=== PATIENT | female | born 1935 | race Caucasian/White ===

== ENCOUNTER 2019-02-22 17:37 | Emergency (ER) | payer MEDICARE ==
[2019-02-22 17:50] VITALS: BP 143/77
--- OUTSIDE RECORDS SUMMARY | 2019-02-22 18:08 | XMS REPORT | Continuity of Care Document ---
:1935 External Reference #:[id number] Author Name Sita Sanchez NP Address [address] [facility] [place] [address] Care Team Providers Name Role Phone David Shoemaker MD Care Team Information Television Announcer Unavailable David Shoemaker MD Primary Care Physician Unavailable Payers Date Identification Numbers Payment Provider Subscriber Effective: 2014 Policy Number: [id number] Medicare Blue Ppo Leslie Smith PayID: [id number] [address] [address] [place] [address] Effective: 2001 Policy Number: [id number] Medicare [place] Leslie Smith Expires: 2017 PayID: [id number] [address] [place] [address] Problems Active Problems Provider Date Abnormal gait David Shoemaker M.D. Onset: 03/29/2018 Foreign body in ear David Shoemaker M.D. Onset: 01/26/2014 Acute upper respiratory infection David Shoemaker M.D. Onset: 06/21/2012 Dyspnea David Shoemaker M.D. Onset: 04/08/2012 Dizziness and giddiness David Shoemaker M.D. Onset: 04/08/2012 Chest pain David Shoemaker M.D. Onset: 04/08/2012 Acute bronchitis David Shoemaker M.D. Onset: 06/23/2011 Family History Date Family Member(s) Observation Comments Mother due to Coronary Atherosclerosis () Social History Type Date Description Comments Sex Unknown Lives With Spouse Tobacco Use Start: Unknown Nonsmoker Tobacco Use Start: Unknown Nonsmoker Smoking Status Reviewed: 02/06/19 Nonsmoker Allergies, Adverse Reactions, Alerts Active Allergies Reaction Severity Comments Date Sulfa Drugs 11/26/1997 Macrodantin 12/13/2004 Medications Active Medications SIG Qnty Indications Ordering Date Provider Guaifenesin ER 1 by mouth twice 30tabs J01.90 Sita Acuna 07/26/2018 1200mg a day Sanchez, KETTLEMAN Tablets ER 12HR Triamcinolone apply thin film 15 David Sanders 03/27/2018 Acetonide twice a day on Belkys Shoemaker 0.5% Cream rash Claritin use 1 by mouth 20caps David Sanders 07/10/2015 10mg Capsules q.d Belkys Shoemaker Antivert 1 po tid prn 50tabs Davdi Sanders 04/23/2012 12.5mg Tablets for vertigo Belkys Shoemaker Preservision Areds 2 2 po qd 120caps Unknown Areds 2 Capsules Nasacort Allergy 24HR spray 2 sprays Unknown in each nostril 55mcg/Act Aerosol at bedtime History Medications Augmentin 1 by mouth twice 16tabs David Sanders 07/31/2018 - 500-125mg a day with meals Belkys Shoemaker 02/06/2019 Tablets Triamcinolone use twice a day 15gm David Sanders 03/27/2018 - Acetonide for 5-7 days Belkys Shoemaker 03/27/2018 0.1% Cream Amoxicillin 1 by mouth twice 14tabs David aSnders 12/27/2016 - 875mg a day x 7 days Belkys Shoemaker 05/07/2017 Tablets Flonase 2 each nostril 1units David Sanders 08/17/2014 - 50mcg/Act every day Belkys Shoemaker 05/07/2017 Suspension Lotrisone use on skin twice 30units David Sanders 08/17/2014 - 1-0.05% a day Belkys Shoemaker 07/10/2015 Cream Valacyclovir HCL 1 tab q 8 hrs x 7 21tabs 053.9 Debbie Ontiveros NP 2013 - 1gm days 01/16/2014 Tablets Tobrex 2 gtts affected 5cc David Sanders 07/09/2013 - 0.3% Solution eye(s) tid x 4-5 Belkys Shoemaker 11/23/2013 days Keflex 1 po bid 20caps David Sanders 01/25/2013 - 500mg Capsules Belkys Shoemaker 02/03/2013 Cipro 1 po bid 16tarula Sanders 01/10/2013 - 500mg Tablets Belkys Shoemaker 11/23/2013 Zostavax pt may receive 1Dose David Sanders 10/10/2012 - the zostavax Belkys Shoemaker 11/23/2013 16618Bjn/0.65ML injection Solution Rec Zithromax Z-Jaydon as directed 1Pbarbara Sanders 06/21/2012 - 250mg Belkys Shoemaker 11/23/2013 Tablets Xyzal 1 po qd 30tabs David Sanders 04/08/2012 - 5mg Tablets Belkys Shoemaker 06/21/2012 Zithromax 2 po qd today , 1tarula Sanders 10/09/2011 - 250mg then 1 po qd Belkys Shoemaker 04/08/2012 Tablets times 4 Ceftin 1 po bid 20tabs David Sanders 06/23/2011 - 500mg Tablets Belkys Shoemaker 04/08/2012 Ciprofloxacin HCL 1 po bid x 5days 10tarula Sanders 01/09/2011 - 250 Belkys Shoemaker 06/23/2011 Tablets Ceftin 1 po bid 16tarula Sanders 09/23/2010 - 500mg Tablets Belkys Shoemaker 01/09/2011 Ceftin 1 po bid x 8 days 16tarula Sanders 06/13/2010 - 250mg Tablets Belkys Shoemaker 09/23/2010 Loratadine 1 po qd 90tabs David Sanders 05/09/2010 - 10mg Belkys Shoemaker 11/23/2013 Tablets Zithromax Z-Jaydon as directed Mindy Sanders 02/25/2010 - 250mg Belkys Shoemaker 04/01/2010 Tablets Nasonex 2 sample [facility] 07/09/2009 - 50mcg/Act sprays/nostril[facility] 05/09/2010 Suspension y Brusly Belia 1 po qd 30tabs David Sanders 07/09/2009 - 180mg Tablets Belkys Shoemaker 05/09/2010 Penvk use bid x 10 20unomar Sanders 07/09/2009 - 500 days Belkys Shoemaker 04/01/2010 Antivert 1 po tid prn for 30tabs David Sanders 04/21/2009 - 12.5mg vertigo Belkys Shoemaker 05/09/2010 Tablets Prednisone 2 Pills A Day For 50tabs David Sanders 11/27/2008 - 20mg 2 WKS Belkys Shoemaker 01/18/2009 Tablets Tessalon take tid for 30caps David Sanders 11/14/2008 - 200mg cough Belkys Shoemaker 07/09/2009 Capsules Omeprazole 1 po qd 30units David Sanders 11/05/2008 - 20mg Pills Belkys Shoemaker 07/09/2009 Advair Diskus 1 puff bid 1unomar Sanders 08/15/2008 - 250/50 Belkys Shoemaker 07/09/2009 Misc Nicoderm CQ 1 qd for 4 weeks 30un David Sanders 08/03/2008 - 14mg/24HR Belkys Shoemaker 01/18/2009 Patches 24HR Nicoderm CQ use daily x 1 mo. 30un David Sanders 08/03/2008 - 7mg/24HR after finishing Belkys Shoemaker 01/18/2009 Patches 24HR 14mg patches Singulair use daily 30units David Sanders 07/10/2008 - 10 Pill Belkys Shoemaker 07/09/2009 Levaquin 1 po qd 10tabs David Sanders 07/10/2008 - 500mg Belkys Shoemaker 01/18/2009 Tablets Robitussin A-C 1-2 tsp po q4h 4Oz David Sanders 07/09/2008 - prn cough Belkys Shoemaker 04/01/2010 Ceftin 1 PO bid 20tabs David Sanders 06/22/2008 - 250mg Tablets Belkys Shoemaker 01/18/2009 Alendronate Sodium take 1 tablet by 12tabs David Sanders 06/13/2008 - mouth every week Belkys Shoemaker 07/09/2009 70mg Tabs Loratadine 1 PO qd [facility] 06/01/2008 - 10mg [facility] 07/09/2009 Tablets Brusly Medrol Dosepak use as directed 1tabs David Sanders 06/01/2008 - 4mg Belkys Shoemaker 06/22/2008 Tablets Doxycycline Hyclate use 1bid 14caps David Sanders 06/01/2008 - Belkys Shoemaker 06/22/2008 100mg Capsules Keflex 1 po bid 14caps David Sanders 11/26/2006 - 500mg Capsules Belkys Shoemaker 03/18/2007 Doxycycline 1 po bid 20capjeff Sanders 08/02/2006 - 100mg Belkys Shoemaker 03/18/2007 Capsules Meclizine 1-2 Tab PO tid 50tabs David Sanders 04/06/2006 - 12.5mg prn Dizziness Belkys Shoemaker 08/02/2006 Tablets Ciprofloxacin 1 bid x 10 days 20tabs 466.0 MADHAVI Stone 01/25/2006 - 500mg 08/02/2006 Tablets Cipro 1 po bid for 7 10tabs David Sanders 03/20/2005 - 500mg Tablets days Belkys Shoemaker 04/03/2005 Ketek David Sanders 03/10/2005 - 5Day Dose Jaydon Belkys Shoemaker 01/25/2006 Tablets Cipro 1 po bid x 10d 20tabs MADHAVI Stone 12/13/2004 - 250mg Tablets 03/10/2005 Robitussin ac 1-2 tsp po q4h 4Oz David Sanders 07/30/2004 - prn cough Belkys Shoemaker 03/10/2005 Physical Therapy treatment and David Sanders 11/30/2003 - evaluation for Belkys Shoemaker 03/10/2005 sciatic pain Augmentin 1 PO bid 20units James Hsu, 07/30/2003 - 875mg Belkys 08/09/2003 Extendryl SR Caps 1 bid 20caps James Hsu, 07/30/2003 - M.DBoaz 08/09/2003 Capsules Ciprofloxacin bid X 10D 20units MADHAVI Stone 07/10/2002 - 250mg 11/14/2002 Cipro bid X 5 Days 10tabs David Sanders 02/28/2002 - 250mg Tabs Belkys Shoemaker 03/05/2002 Cipro 1 PO bid 10tabs David Sanders 11/22/2001 - 250mg Tabjeff Shoemaker M.D. 11/27/2001 Fosamax 1 po qwk 12units David Sanders 01/31/2001 - 70mg Belkys Shoemaker 07/09/2009 please fill genericly Ceftin po bid 20units David Sanders 04/06/2000 - 250mg Belkys Shoemaker 01/31/2001 Claritin 1 qd 100units David Sanders 11/26/1997 - 10mg Belkys Shoemaker 07/30/2003 Estrace insert 1 3months Unknown - 0.1mg/GM applicator full 04/08/2012 Cream pv three times a wk for 1 month then biweekly Nasonex 2 sprays every 1units David Sanders - 50mcg/Act night at bedtime Belkys Shoemaker 08/17/2014 Suspension each nostril Belia Allergy 1 po qd prn Unknown - 60mg 07/10/2015 Tablets Immunizations CPT Code Status Date Vaccine Lot # [id number] Given 04/18/2018 High-Dose, Influenza Virus Vacccine-fluzone 65 and older 92620 Given 07/10/2015 Pneumococcal Conjugate Vacc-13 [id number] Given 05/10/2015 High-Dose, Influenza Virus Vacccine-fluzone 65 and older 37270 Given 04/24/2014 DO Not Use Split Influenza Virus Vaccine 99731 Given 04/26/2013 DO Not Use Split Influenza Virus Vaccine 85449 Given 09/09/2012 Zostivax 53086 Given 04/08/2012 Tdap Tetanus, W Pertussis [id number] 71471 Given 04/08/2012 DO Not Use Split Influenza Virus Vaccine [id number] 60564 Given 04/01/2010 DO Not Use Split Influenza Virus Vaccine [id number] 27833 Given 04/30/2008 DO Not Use Split Influenza Virus Vaccine [id number] 97022 Given 07/11/2007 DO Not Use Split Influenza Virus Vaccine [id number] 24928 Given 06/11/2006 DO Not Use Split Influenza Virus Vaccine 91375 Given 05/21/2005 DO Not Use Split Influenza Virus Vaccine 17961 Given 05/30/2004 DO Not Use Split Influenza Virus Vaccine Vital Signs Date Vital Result Comment 02/06/2019 3:27pm BP Systolic 136 mmHg BP Diastolic 78 mmHg Heart Rate 70 /min Body Temperature 98.1 F Respiratory Rate 16 /min Height 62 inches 5'2" Weight 138.00 lb BMI (Body Mass Index) 25.2 kg/m2 07/26/2018 2:16pm BP Systolic 124 mmHg BP Diastolic 70 mmHg Heart Rate 72 /min Body Temperature 99.0 F Respiratory Rate 18 /min Height 62 inches 5'2" 03/29/2018 11:36am BP Systolic 136 mmHg BP Diastolic 84 mmHg Heart Rate 76 /min Body Temperature 97.5 F Height 62 inches 5'2" Weight 146.00 lb BMI (Body Mass Index) 26.7 kg/m2 07/20/2017 2:42pm BP Systolic 144 mmHg BP Diastolic 86 mmHg Heart Rate 60 /min Body Temperature 97.2 F Respiratory Rate 16 /min Height 61.5 inches 5'1.50" Weight 153.12 lb BMI (Body Mass Index) 28.5 kg/m2 05/07/2017 3:58pm BP Systolic 128 mmHg BP Diastolic 78 mmHg Heart Rate 76 /min Body Temperature 97.9 F Respiratory Rate 16 /min O2 % BldC Oximetry 97 % Ra Height 61.5 inches 5'1.50" Weight 150.00 lb BMI (Body Mass Index) 27.9 kg/m2 07/10/2015 10:46am BP Systolic 124 mmHg BP Diastolic 70 mmHg Heart Rate 74 /min Body Temperature 97.4 F Respiratory Rate 18 /min Height 62 inches 5'2" Weight 150.00 lb BMI (Body Mass Index) 27.4 kg/m2 01/26/2014 10:31am BP Systolic 126 mmHg BP Diastolic 70 mmHg Heart Rate 62 /min Body Temperature 97.0 F Respiratory Rate 18 /min Height 62 inches 5'2" Weight 150.00 lb BMI (Body Mass Index) 27.4 kg/m2 01/16/2014 9:41am BP Systolic 122 mmHg BP Diastolic 80 mmHg Heart Rate 64 /min Body Temperature 97.9 F Respiratory Rate 18 /min Height 62 inches 5'2" Weight 150.00 lb BMI (Body Mass Index) 27.4 kg/m2 11/30/2013 9:38am BP Systolic 130 mmHg BP Diastolic 70 mmHg Heart Rate 70 /min Body Temperature 97.0 F Respiratory Rate 18 /min Height 61.5 inches 5'1.50" Weight 148.00 lb BMI (Body Mass Index) 27.5 kg/m2 11/23/2013 3:18pm BP Systolic 122 mmHg BP Diastolic 80 mmHg Heart Rate 76 /min Body Temperature 97.7 F Respiratory Rate 16 /min Height 61.5 inches 5'1.50" Weight 151.38 lb BMI (Body Mass Index) 28.1 kg/m2 03/03/2013 2:26pm BP Systolic 120 mmHg BP Diastolic 78 mmHg Heart Rate 80 /min Body Temperature 97.9 F Respiratory Rate 16 /min Height 61.5 inches 5'1.50" Weight 148.38 lb BMI (Body Mass Index) 27.6 kg/m2 06/21/2012 1:16pm BP Systolic 120 mmHg BP Diastolic 66 mmHg Heart Rate 88 /min Body Temperature 99.2 F Height 61.5 inches 5'1.50" Weight 155.00 lb BMI (Body Mass Index) 28.8 kg/m2 04/08/2012 3:33pm BP Systolic 100 mmHg BP Diastolic 60 mmHg Heart Rate 64 /min Body Temperature 98.4 F Respiratory Rate 20 /min Height 61.5 inches 5'1.50" Weight 155.00 lb BMI (Body Mass Index) 28.8 kg/m2 06/23/2011 1:24pm BP Systolic 112 mmHg BP Diastolic 64 mmHg Heart Rate 76 /min Body Temperature 98.8 F Height 62.5 inches 5'2.50" Weight 154.00 lb BMI (Body Mass Index) 27.7 kg/m2 01/09/2011 11:44am BP Systolic 110 mmHg BP Diastolic 70 mmHg Heart Rate 68 /min Respiratory Rate 14 /min Height 62.5 inches 5'2.50" Weight 154.00 lb BMI (Body Mass Index) 27.7 kg/m2 09/23/2010 4:34pm BP Systolic 126 mmHg BP Diastolic 72 mmHg Heart Rate 72 /min Body Temperature 98.8 F Height 62.5 inches 5'2.50" Weight 153.00 lb BMI (Body Mass Index) 27.5 kg/m2 05/09/2010 10:42am BP Systolic 104 mmHg BP Diastolic 64 mmHg Heart Rate 84 /min Height 62.5 inches 5'2.50" Weight 153.00 lb BMI (Body Mass Index) 27.5 kg/m2 02/25/2010 2:07pm BP Systolic 122 mmHg BP Diastolic 72 mmHg Heart Rate 72 /min Body Temperature 98.9 F Height 63 inches 5'3" Weight 156.00 lb BMI (Body Mass Index) 27.6 kg/m2 07/09/2009 11:43am BP Systolic 110 mmHg BP Diastolic 70 mmHg Heart Rate 72 /min Body Temperature 97.8 F Height 63 inches 5'3" Weight 154.00 lb BMI (Body Mass Index) 27.3 kg/m2 01/18/2009 9:12am BP Systolic 120 mmHg BP Diastolic 80 mmHg Heart Rate 80 /min Body Temperature 99.2 F Respiratory Rate 16 /min Weight 152.00 lb 07/10/2008 2:11pm BP Systolic 134 mmHg BP Diastolic 84 mmHg Heart Rate 84 /min Height 63 inches 5'3" Weight 158.00 lb BMI (Body Mass Index) 28.0 kg/m2 06/01/2008 1:14pm BP Systolic 132 mmHg BP Diastolic 88 mmHg Heart Rate 68 /min Body Temperature 98.5 F Respiratory Rate 20 /min Height 63 inches 5'3" Weight 159.00 lb BMI (Body Mass Index) 28.2 kg/m2 03/18/2007 11:07am BP Systolic 126 mmHg BP Diastolic 66 mmHg Heart Rate 72 /min Body Temperature 98.5 F Height 63 inches 5'3" Weight 155.00 lb BMI (Body Mass Index) 27.5 kg/m2 11/26/2006 1:09pm BP Systolic 124 mmHg BP Diastolic 68 mmHg Heart Rate 78 /min Body Temperature 98.2 F Height 63 inches 5'3" Weight 158.00 lb BMI (Body Mass Index) 28.0 kg/m2 08/02/2006 3:12pm BP Systolic 132 mmHg BP Diastolic 82 mmHg Heart Rate 80 /min Body Temperature 98.3 F Height 63 inches 5'3" Weight 158.00 lb BMI (Body Mass Index) 28.0 kg/m2 01/25/2006 8:42pm BP Systolic 126 mmHg BP Diastolic 82 mmHg Heart Rate 74 /min Body Temperature 98.6 F Respiratory Rate 15 /min Height 63 inches 5'3" 03/10/2005 1:59pm BP Systolic 122 mmHg BP Diastolic 70 mmHg BP Diastolic Recheck 0 mmHg Body Temperature 97.2 F Height 63 inches 5'3" Weight 152.00 lb BMI (Body Mass Index) 26.9 kg/m2 12/13/2004 10:18am BP Systolic 106 mmHg BP Diastolic 70 mmHg Heart Rate 76 /min Body Temperature 98.1 F Height 63 inches 5'3" Weight 152.00 lb BMI (Body Mass Index) 26.9 kg/m2 12/24/2003 9:06am BP Systolic 120 mmHg BP Diastolic 84 mmHg Heart Rate 80 /min Height 63 inches 5'3" Weight 152.00 lb BMI (Body Mass Index) 26.9 kg/m2 11/27/2003 4:19pm BP Systolic 90 mmHg BP Diastolic 60 mmHg Heart Rate 72 /min Height 63 inches 5'3" Weight 151.00 lb BMI (Body Mass Index) 26.7 kg/m2 07/30/2003 1:54pm BP Systolic 112 mmHg BP Diastolic 68 mmHg Heart Rate 72 /min Body Temperature 97.1 F R Ear Height 63 inches 5'3" Weight 154.00 lb BMI (Body Mass Index) 27.3 kg/m2 11/14/2002 10:32am BP Systolic 92 mmHg BP Diastolic 62 mmHg Heart Rate 76 /min Body Temperature 98.3 F Height 63 inches 5'3" Weight 152.00 lb BMI (Body Mass Index) 26.9 kg/m2 07/10/2002 6:06pm BP Systolic 100 mmHg BP Diastolic 60 mmHg Heart Rate 86 /min Height 63 inches 5'3" Weight 154.00 lb BMI (Body Mass Index) 27.3 kg/m2 01/31/2001 9:24am BP Systolic 110 mmHg BP Diastolic 70 mmHg Heart Rate 84 /min Height 63 inches 5'3" Weight 155.00 lb BMI (Body Mass Index) 27.5 kg/m2 04/06/2000 2:26pm BP Systolic 102 mmHg BP Diastolic 70 mmHg Body Temperature 98.0 F Weight 151.00 lb 05/15/1998 4:25pm BP Systolic 118 mmHg BP Diastolic 80 mmHg Body Temperature 97.8 F Weight 161.00 lb 04/09/1998 11:37am BP Systolic 110 mmHg BP Diastolic 76 mmHg Body Temperature 97.0 F Weight 158.00 lb 11/26/1997 10:30am BP Systolic 106 mmHg BP Diastolic 60 mmHg Height 63.5 inches 5'3.50" Weight 155.00 lb Results Test Date Facility Test Result H/L Range Note Ua - Micro ([facility]) 02/06/2019 [facility] Appearance CLEAR (607)- - Color YELLOW Glucose, Urine ([facility]/CTX) NEG Bilirubin NEG Ketones NEG SP Grav 1.015 Blood TRACE-INTACT # PH 7.5 Protein 1+ # Urobil 0.2 Nitrite NEG Leukocytes ([facility]) NEG Hyaline - /Lpf Granular - /Lpf WBC ([facility]) - RBC 0-2 # Mucus ([facility]/CBC/[facility]) - /Lpf Epith RARE /Lpf # Bacteria RARE /Hpf # Amorphous ([facility]) - /Lpf Crystals, Fluid ([facility]/CTX) - Basic Metabolic Panel 05/09/2018 [facility] [place] 135 mmol/L N 135-145 Potassium 4.3 mmol/L N 3.5-5.0 Chloride 101 mmol/L N 101-111 Co2 Carbon Dioxide 32 mmol/L N 22-32 Anion Gap 2 mmol/L N 2-11 Glucose 116 mg/dL High 70-100 Blood Urea Nitrogen 32 mg/dL High 6-24 Creatinine 1.09 mg/dL High 0.51-0.95 BUN/Creatinine Ratio 29.4 High 8-20 Calcium 9.1 mg/dL N 8.6-10.3 Egfr Non- 48.2 >60 Egfr 58.3 >60 1 Laboratory test 05/09/2018 [facility] [place] Dimer Quantitative < 200 ng/mL N Less Than 230 2 finding B-Type Natriuretic Peptide BNP 171 pg/mL High 3 Basic Metabolic Panel 04/29/2018 [facility] [place] 137 mmol/L N 135-145 Potassium 5.0 mmol/L N 3.5-5.0 Chloride 105 mmol/L N 101-111 Co2 Carbon Dioxide 28 mmol/L N 22-32 Anion Gap 4 mmol/L N 2-11 Calcium 9.4 mg/dL N 8.6-10.3 Glucose 124 mg/dL High 70-100 Blood Urea Nitrogen 30 mg/dL High 6-24 Creatinine 1.05 mg/dL High 0.51-0.95 BUN/Creatinine Ratio 28.6 High 8-20 Egfr Non- 50.3 >60 Egfr 60.9 >60 4 CBC Auto Diff 04/18/2018 [facility] [place] Blood Count 7.0 10^3/uL N 3.5-10.8 Red Blood Count 4.03 10^6/uL N 4.00-5.40 Hemoglobin 12.4 g/dL N 12.0-16.0 Hematocrit 36 % N 35-47 Mean Corpuscular Volume 89 fL N 80-97 Mean Corpuscular Hemoglobin 31 pg N 27-31 Mean Corpuscular HGB Conc 35 g/dL N 31-36 Red Cell Distribution Width 13 % N 10.5-15 Platelet Count 171 10^3/uL N 150-450 Mean Platelet Volume 9.9 um3 N 7.4-10.4 Abs Neutrophils 5.8 10^3/uL N 1.5-7.7 Abs Lymphocytes 0.8 10^3/uL Low 1.0-4.8 Abs Monocytes 0.3 10^3/uL N 0-0.8 Abs Eosinophils 0.2 10^3/uL N 0-0.6 Abs Basophils 0 10^3/uL N 0-0.2 Abs Nucleated RBC 0 10^3/uL Granulocyte % 82.2 % N 38-83 Lymphocyte % 10.8 % Low 25-47 Monocyte % 3.9 % N 0-7 Eosinophil % 2.7 % N 0-6 Basophil % 0.4 % N 0-2 Nucleated Red Blood Cells % 0.2 Basic Metabolic Panel 04/18/2018 [facility] [place] 134 mmol/L Low 135-145 Chloride 99 mmol/L Low 101-111 Co2 Carbon Dioxide 31 mmol/L N 22-32 Glucose 148 mg/dL High 70-100 Blood Urea Nitrogen 40 mg/dL High 6-24 Creatinine 1.47 mg/dL High 0.51-0.95 BUN/Creatinine Ratio 27.2 High 8-20 Calcium 9.5 mg/dL N 8.6-10.3 Egfr Non- 34.1 >60 Egfr 41.3 >60 5 Potassium 5.4 mmol/L High 3.5-5.0 Anion Gap 4 mmol/L N 2-11 Maxbass/Lambda Free Light 04/18/2018 [facility] [place]ass Free Light 2.44 mg/dL Abnormal 6 Chains Ser Chain Lambda Free Light Chain 3.04 mg/dL Abnormal 7 Maxbass/Lambda Free Light Chain 0.8026 8 Protein Electrophoresis 04/18/2018 [facility] [place] Total Protein(Pep) 6.6 g/dL 6.3 - 7.9 Albumin 3.3 g/dL Abnormal 3.4-4.7 Alpha-1 Globulin 0.2 g/dL 0.1-0.3 Alpha-2 Globulin 1.0 g/dL 0.6-1.0 Beta Globulin 0.8 g/dL 0.7-1.2 Gamma Globulin 1.3 g/dL 0.6-1.6 Albumin/Globulin Ratio 0.97 M Henok 0.9 g/dL Impression See Comment 9 Lipid Profile 05/14/2017 John Mas(a) Cholesterol 200 mg/dL 120- 200 Triglycerides 80 mg/dL 30-200 HDL Cholesterol 61 mg/dL 30-85 LDL (Calculated) 123 CALC 0-129 VLDL Cholesterol 16 mg/dL 0-50 HDL Risk Factor 3.3 CALC 0.0-4.4 Laboratory test finding 05/14/2017 Lopez Flora(a) TSH 2.14 mIU/L 0.50-6.00 Vitamin B-12 871 pg/mL 230-1050 Spep Serum Protein 05/14/2017 [facility] Protein, 6.6 g/dL 6.0-8.5 Electrophoresis [address] [facility] Total, [place] [address] (602)- - Albumin 3.4 g/dL 2.9-4.4 Ocplf-4-Nrrcjcfg 0.2 g/dL 0.0-0.4 Tqccq-6-Xdwomvif 0.8 g/dL 0.4-1.0 Beta Globulin 0.8 g/dL 0.7-1.3 Gamma Globulin 1.4 g/dL 0.4-1.8 M-Henok 1.1 g/dL High Not Observed 10 Globulin, Total 3.2 g/dL 2.2-3.9 A/G Ratio 1.1 0.7-1.7 Please note: See Comment: 11 Laboratory test 05/14/2017 [facility] PDF [id number] SEE IMAGE finding [address] [place] [address] (101)- - CBC Auto Diff 04/10/2016 [facility] [place] Blood Count 6.7 10^3/uL N 3.5-10 .8 Red Blood Count 4.16 10^6/uL N 4.0-5.4 Hemoglobin 12.8 g/dL N 12.0-16.0 Hematocrit 37 % N 35-47 Mean Corpuscular Volume 89 fL N 80-97 Mean Corpuscular Hemoglobin 31 pg N 27-31 Mean Corpuscular HGB Conc 34 g/dL N 31-36 Red Cell Distribution Width 13 % N 10.5-15 Platelet Count 169 10^3/uL N 150-450 Mean Platelet Volume 10 um3 N 7.4-10.4 Abs Neutrophils 5.2 10^3/uL N 1.5-7.7 Abs Lymphocytes 0.9 10^3/uL Low 1.0-4.8 Abs Monocytes 0.4 10^3/uL N 0-0.8 Abs Eosinophils 0.2 10^3/uL N 0-0.6 Abs Basophils 0.1 10^3/uL N 0-0.2 Abs Nucleated RBC 0 10^3/uL N Granulocyte % 77.3 % N 38-83 Lymphocyte % 12.8 % Low 25-47 Monocyte % 5.3 % N 1-9 Eosinophil % 3.4 % N 0-6 Basophil % 1.2 % N 0-2 Nucleated Red Blood Cells % 0.1 N Comp Metabolic Panel 04/10/2016 [facility] Sodium 136 mmol/L N 133-145 Potassium 4.9 mmol/L N 3.5-5.0 Chloride 102 mmol/L N 101-111 Co2 Carbon Dioxide 29 mmol/L N 22-32 Anion Gap 5 mmol/L N 2-11 Glucose 86 mg/dL N 70-100 Blood Urea Nitrogen 31 mg/dL High 6-24 Creatinine 1.10 mg/dL High 0.51-0.95 BUN/Creatinine Ratio 28.2 High 8-20 Calcium 9.4 mg/dL N 8.6-10.3 Total Protein 6.6 g/dL N 6.4-8.9 Albumin 3.9 g/dL N 3.2-5.2 Globulin 2.7 g/dL N 2-4 Albumin/Globulin Ratio 1.4 N 1-3 Total Bilirubin 0.50 mg/dL N 0.2-1.0 Alkaline Phosphatase 42 U/L N 34-104 Alt 14 U/L N 7-52 Ast 21 U/L N 13-39 Egfr Non- 47.9 N >60 Egfr 61.6 N >60 12 Protein Electrophoresis 04/10/2016 [facility] Total Protein(Pep) 6.8 g/dL N 6.3 - 7.9 Albumin 3.3 g/dL Abnormal 3.4-4.7 Alpha-1 Globulin 0.3 g/dL N 0.1-0.3 Alpha-2 Globulin 1.1 g/dL Abnormal 0.6-1.0 Beta Globulin 0.8 g/dL N 0.7-1.2 Gamma Globulin 1.4 g/dL N 0.6-1.6 Albumin/Globulin Ratio 0.93 N M Henok 1.0 g/dL N Impression See Comment N 13 Lipid Profile 07/17/2015 John Mas(a) Cholesterol 231 mg/dL High 120-200 Triglycerides 76 mg/dL 30-200 HDL Cholesterol 66 mg/dL 30-85 LDL (Calculated) 150 CALC High 0-129 VLDL Cholesterol 15 mg/dL 0-50 HDL Risk Factor 3.5 CALC 0.0-4.4 Comprehensive Metabolic 07/17/2015 John Mas(a) Sodium 138 mEq/L 134-149 Prof Potassium 4.4 mEq/L 3.6-5.5 Chloride 99 mEq/L 94-112 Carbon Dioxide 26 mEq/L 21-32 Glucose 105 mg/dL 70-105 BUN 24 mg/dL 6-26 Creatinine 1.0 mg/dL 0.6-1.4 BUN/Creat Ratio 24.0 CALC 8.0-36.0 Calcium 9.2 mg/dL 8.6-10.2 Total Protein 7.4 g/dL 6.4-8.3 Albumin 4.3 g/dL 3.8-5.5 Globulin 3.1 g/dL 2.0-4.8 A/G Ratio 1.4 CALC 0.6-2.3 Alk. Phosphatase 47 U/L 30-110 Alt (SGPT) 16 U/L 7-35 Ast (Sgot) 26 U/L 5-34 Total Bilirubin 0.5 mg/dL 0.2-1.3 GFR Non- 57 ml/min/1.73m^ Low >=60 GFR >60 ml/min/1.73m^ >=60 Complete Blood Count 07/17/2015 John Mas(a) WBC 5.1 x10^3/UL 3.6 -9.6 RBC 4.09 x10^6/UL 3.90-5.70 HGB 12.5 g/dL 12.1-17.2 HCT 37 % 36-50 MCV 91.0 fL 82.2-97.4 MCH 30.6 pg 27.6-33.3 MCHC 33.5 g/dL 33.0-35.5 RDW 13.2 % 11.6-13.7 PLT 163 x10^3/UL 150-400 MPV 8.9 fL 7.4-10.4 Gran # 3.7 x10^3/UL 1.5-7.2 Lymph# 1.1 x10^3/UL 0.7-4.9 [facility]# 0.3 x10^3/UL 0.1-0.9 Gran % 70.9 % 42.2-75.2 Lymph % 22.9 % 20.5-51.1 [facility]% 6.2 % 1.7-9.3 Basic Metabolic Panel 02/04/2015 [facility] Sodium 134 mmol/L N 133-145 Potassium 5.1 mmol/L High 3.5-5.0 Chloride 100 mmol/L Low 101-111 Co2 Carbon Dioxide 31 mmol/L N 22-32 Anion Gap 3 mmol/L N 2-11 Glucose 99 mg/dL N 70-100 Blood Urea Nitrogen 26 mg/dL High 6-24 Creatinine 1.04 mg/dL High 0.51-0.95 BUN/Creatinine Ratio 25.0 High 8-20 Calcium 9.5 mg/dL N 8.6-10.3 Egfr Non- 51.3 N >60 Egfr 65.9 N >60 14 Immunofix 01/22/2014 [facility] Immunoglobulin G 1341.0 800.0-1700.0 15 Electro Serum [address] (Igg) mg/[place] [address] [phone] Immunoglobulin A (Iga) 69.0 mg/dL Low 85.0-450.0 Immunoglobulin M (Igm) 90.0 mg/dL 60.0-370.0 Immunofixation, Serum SEE BELOW Diane Interp., Serum SEE COMMENT 16 Laboratory test 01/16/2014 [facility](fma) Vitamin B-12 765 pg/mL 230-1050 finding Free T4 1.00 ng/dL 0.75-1.54 TSH 1.63 mIU/L 0.50-6.00 Glucose, Serum 86 mg/dL 70-105 17 Protein Elect 01/16/2014 [facility] Protein Elect SEE BELOW 18 Serum 28 [facility] [address] Serum [place], [place] [id number] [phone] Graph Report TO FOLLOW Albumin 3.7 g/dL 3.2-5.6 Alpha 1 Globulin, Serum 0.2 g/dL 0.1-0.4 Alpha 2 Globulin, Serum 0.7 g/dL 0.4-1.2 Beta Globulin, Serum 0.9 g/dL 0.6-1.3 Gamma Globulin 1.4 g/dL 0.5-1.6 M-Henok Gamma 0.9 g/dL Abnormal Not Observed M-Henok Beta NOT OBSERVED g/dL Not Observed Globulin,Total 3.2 g/dL 2.0-4.5 A/G Ratio 1.2 0.7-2.0 Protein, Total 6.9 g/dL 6.4-8.3 Interpretation, Serum SEE COMMENT 19 Surgical Pathology 05/04/2013 [facility] [place] <SEE NOTE> CBC Electronic (a) 03/14/2013 Family Medicine WBC 5.7 3.6-9.6 (607)- - RBC 4.10 3.90-5.70 Hemoglobin (Fma/CMC/CTX) 12.9 g/dL 12.1 - 17.2 Hematocrit (Fma/CMC/CTX) 37.8 % 36.1 - 50.3 Platelets 156 10^3/ul 150-400 Lymph% 22.6 20.5-51.1 Mixed% 5.3 Neutrophils % 72.1 Mean Corpuscular Vol 92 82.2-97.4 Mean Corpuscular Hemoglobin 31.5 27.6-33.3 Mean Corpuscular Hemo Concen 34.1 32.0-36.0 RDW 11.5 Low 11.6-13.7 Mean Platelet Volume 8.5 6.5-11.0 Comprehensive Metabolic 03/14/2013 Lopez Tg([facility]) Albumin 4.1 g/dL 3.8-5.5 Prof Alk. Phos. 40 U/L 30-110 Alt (SGPT) 13 U/L 7-35 Ast (Sgot) 25 U/L 5-34 BUN 25 mg/dL 6-26 Calcium 9.5 mg/dL 8.6-10.2 Chloride 108 mEq/L 94-112 Creatinine 1.0 mg/dL 0.6-1.4 Carbon Dioxide 29 mEq/L 21-32 Glucose 101 mg/dL 70-105 Sodium 138 mEq/L 134-149 Total Bilirubin 0.6 mg/dL 0.2-1.3 Total Protein 7.0 g/dL 6.3-8.1 Potassium 4.3 mEq/L 3.6-5.5 Globulin 2.9 g/dL 2.0-4.8 A/G Ratio 1.4 Calc 0.6-2.3 BUN/Creat Ratio 24.3 Calc 8.0-36.0 Lipid Profile 03/14/2013 John Tg(fma) Cholesterol 228 mg/dL High 120-200 HDL 64 mg/dL 30-85 Triglycerides 75 mg/dL 30-200 HDL Risk Factor 3.6 CALC 0.0-4.4 LDL (Calculated) 149 CALC High 0-129 VLDL (Calculated) 15 mg/dL 0-50 Surgical Pathology 02/09/2013 [facility] [place]: <SEE NOTE> Influenza A&B 06/21/2012 [facility] Medicine Influenza A NEG (607)- - Influenza B NEG Comprehensive Metabolic 04/26/2012 John Tg(fma) Albumin 4.3 g/dL 3.8-5.5 Prof Alk. Phos. 43 U/L 30-110 Alt (SGPT) 16 U/L 7-35 Ast (Sgot) 23 U/L 5-34 BUN 32 mg/dL High 6-26 22 Calcium 10.0 mg/dL 8.6-10.2 Chloride 99 mEq/L 94-112 Creatinine 1.1 mg/dL 0.6-1.4 Carbon Dioxide 24 mEq/L 21-32 Glucose 100 mg/dL 70-105 Sodium 137 mEq/L 134-149 Total Bilirubin 0.6 mg/dL 0.2-1.3 Total Protein 7.4 g/dL 6.3-8.1 Potassium 4.2 mEq/L 3.6-5.5 Globulin 3.1 g/dL 2.0-4.8 A/G Ratio 1.4 Calc 0.6-2.2 BUN/Creat Ratio 29.1 Calc 8.0-36.0 Laboratory test 04/26/2012 John Tg(fma) TSH 2.45 mIU/L 0.50-6.00 finding Lipid Profile 04/26/2012 Loepz Tg([facility]) Cholesterol 243 mg/dL High 120-200 HDL 64 mg/dL 30-85 Triglycerides 73 mg/dL 30-200 HDL Risk Factor 3.8 CALC 0.0-4.4 LDL (Calculated) 165 CALC High 0-129 VLDL (Calculated) 15 mg/dL 0-50 CBC Electronic ([facility]) 04/26/2012 [facility] WBC 5.7 3.6-9.6 (607)- - RBC 4.60 3.90-5.70 Hemoglobin (Fma/CMC/CTX) 14.3 g/dL 12.1 - 17.2 Hematocrit (a/CMC/CTX) 43.5 % 36.1 - 50.3 Platelets 206 10^3/ul 150-400 Lymph% 25.4 20.5-51.1 Mixed% 9.9 Neutrophils % 64.7 Mean Corpuscular Vol 95 82.2-97.4 Mean Corpuscular Hemoglobin 31.2 27.6-33.3 Mean Corpuscular Hemo Concen 32.9 32.0-36.0 RDW 14.2 High 11.6-13.7 Mean Platelet Volume 8.0 6.5-11.0 Ua - Micro ([facility]) 04/08/2012 [facility] Appearance CLEAR (607)- - Color YELLOW Glucose NEG Bilirubin NEG Ketones NEG SP Grav 1.020 Blood MODERATE # PH 6.5 Protein SSA:TRACE # Urobil 0.2 Nitrite NEG Leukocytes (Fma/CMC/[facility]) NEG Hyaline - /Lpf Granular - /Lpf WBC ([facility]) 7-10 # RBC 15-20 # Mucus - /Lpf Epith FEW /Lpf # Bacteria RARE /Hpf # Amorphous - /Lpf Crystals, Fluid (a/CMC/CTX) - Z#Comments - Ua - Micro ([facility]) 01/09/2011 [facility] Appearance CLEAR (607)- - Color YELLOW Glucose NEG Bilirubin NEG Ketones TRACE SP Grav 1.015 Blood SMALL # PH 6.5 Protein NEG Urobil 0.2 Nitrite NEG Leukocytes (Fma/CMC/[facility]) NEG Hyaline - /Lpf Granular - /Lpf WBC ([facility]) 3-5 # RBC 1-2 # Bacteria 1+ /Hpf # Lipid Profile 05/13/2010 John Tg(a) Cholesterol 212 mg/dL High 120-200 23 HDL 59 mg/dL 30-85 Triglycerides 68 mg/dL 30-200 24 HDL Risk Factor 3.6 CALC Low 4.2-7.0 LDL (Calculated) 140 CALC High 0-129 VLDL (Calculated) 14 mg/dL 0-50 Laboratory test 05/13/2010 John Mas([facility]) TSH 2.55 mIU/L 0.50-6.00 finding Comprehensive 05/13/2010 John Tg(a) Albumin 4.0 g/dL 3.8-5.5 Metabolic Prof Alk. Phos. 35 U/L 30-110 Alt (SGPT) 14 U/L 7-35 Ast (Sgot) 26 U/L 5-34 BUN 26 mg/dL 6-26 Calcium 9.7 mg/dL 8.6-10.2 Chloride 101 mEq/L 94-112 Creatinine 1.0 mg/dL 0.6-1.4 Carbon Dioxide 26 mEq/L 21-32 Glucose 101 mg/dL 70-105 Sodium 139 mEq/L 134-149 Total Bilirubin 0.7 mg/dL 0.2-1.3 Total Protein 7.2 g/dL 6.3-8.1 Potassium 4.3 mEq/L 3.6-5.5 Globulin 3.2 g/dL 2.0-4.8 A/G Ratio 1.3 Calc 0.6-2.2 BUN/Creat Ratio 25.4 Calc 8.0-36.0 Laboratory test 05/13/2010 [facility] Vitamin D, 35.1 ng/mL 32.0-100.[address] [facility] [address] [place] [address] [phone] CBC (a) 05/13/2010 Family Medicine WBC 4.6 3.6-9.6 (607)- - RBC 4.41 3.90-5.70 Hemoglobin (Fma/CMC/CTX) 13.9 g/dL 12.1 - 17.2 Hematocrit (Fma/CMC/CTX) 40.6 % 36.1 - 50.3 Platelets 176 10^3/ul 150-400 Lymph% 26.5 20.5-51.1 Mixed% 5.5 Neutrophils % 68.0 Mean Corpuscular Vol 92 82.2-97.4 Mean Corpuscular Hemoglobin 31.4 27.6-33.3 Mean Corpuscular Hemo Concen 34.2 33.0-36.0 RDW 11.6 11.6-13.7 Mean Platelet Volume 8.1 7.4-10.4 Ua - Micro (Fma) 05/09/2010 Family Medicine Appearance CLEAR (607)- - Color YELLOW Glucose NEG Bilirubin NEG Ketones NEG SP Grav 1.015 Blood MODERATE # PH 7.0 Protein SSA:TRACE # Urobil 0.2 E.U./dL Nitrite NEG Leukocytes (Fma/CMC/[facility]) NEG Hyaline - /Lpf Granular - /Lpf WBC (Fma,[facility]) 2-3 # RBC 10-12 # Mucus - /Lpf Epith FEW /Lpf # Bacteria TRACE /Hpf # Amorphous - /Lpf Crystals, Fluid (Fma/CMC/CTX) - Z#Comments - Laboratory test 02/07/2009 [facility] Gram Stain NO EPI, RARE [address] [facility] Only WBC <[place] [address] NOTE> [phone] [facility] Put Test In Order Notes Fungus Culture Cherrie albicans 27 Sputum Culture 02/07/2009 [facility] Sputum Culture Normal respirato [address] [facility] <SEE NOTE> [place] [address] [phone] .Gram Stain Additional NO EPI, RARE WBC <SEE NOTE> 29 Laboratory test 02/07/2009 [facility] Fungal Smear FEW FUNGAL [address] [facility] ELEME <[place] [address] NOTE> [phone] Laboratory test 12/10/2008 [facility] [place]otest N^NEGATIVE^C finding LO CBC With 11/19/2008 [facility] White Blood 7.6 CUMM 4.8-10 Electronic Diff Count .8 Red Cell Count 4.50 CUMM 4.2-5.4 Hemoglobin 14.1 g/dL 12.0-16.0 Hematocrit 41 % 35-47 Mean Corpuscular Volume 91 um3 79-97 Mean Corpuscular Hemoglob 31 pg 27-31 Mean Corpuscular HGB Cone 35 g/dL 32-36 Redcell Distribution WDTH 13 % 10.5-15 Platelet Count 217 CUMM 150-450 Mean Platelet Volume 8.5 um3 7.4-10.4 Gran % 77.5 % 38-83 Lymph % 15.9 % Low 25-47 Mononuclear % 4.8 % 1-9 Eosinophil % 1.4 % 0-6 Basophil % 0.4 % 0-2 Abs Lymphs 1.2 1.0-4.8 Abs Mononuclear 0.4 0-0.8 Absolute Neutrophil Count 5.9 1.5-7.7 Abs Eosinophils 0.1 0-0.6 Abs Basophils 0 0-0.2 31 Comp Metabolic Panel 11/19/2008 [facility] [place]odium 132 mmol/L Low 135-145 Potassium 4.3 mmol/L 3.5-5.0 Chloride 100 mmol/L Low 101-111 Co2 (Carbon Dioxide) 27.0 mmol/L 22-32 Anion Gap 5.0 mmol/L 2-11 32 Glucose 106 mg/dL High 70-100 33 BUN 16 mg/dL 6-24 Creatinine 0.90 mg/dL 0.50-1.40 One Over Creatinine 1.10 BUN/Creatinine Ratio 17.8 8-20 Calcium 9.2 mg/dL 8.1-9.9 34 Total Protein 6.5 GM/DL 6.2-8.1 Albumin 3.6 GM/DL 3.2-5.2 Globulin 2.9 GM/DL 2-4 Albumin/Globulin Ratio 1.2 1-3 Bilirubin Total 1.0 mg/dL 0.4-1.5 Alkaline Phosphatase 37 U/L 30-110 Alt (SGPT) 20 U/L 14-54 Ast (Sgot) 24 U/L 12-42 Laboratory test finding 11/19/2008 [facility] [place]rythrocyte Sed Rate 20 MM/HR 0- 40 Ige 6.5 kU/L () 35 Laboratory test 11/19/2008 [facility] [place] BNP Evaluatr 55.0 pg/mL 0-100 finding Lipid Profile 08/03/2008 Lopez Tg([facility]ma) Cholesterol 213 mg/dL High 120-200 HDL 57 mg/dL 30-85 Triglycerides 76 mg/dL 30-200 HDL Risk Factor 3.8 CALC Low 4.2-7.0 LDL (Calculated) 142 CALC High 0-129 VLDL (Calculated) 15 mg/dL 0-50 Laboratory 08/03/2008 [facility] CRP (High 1.24 0.00-3.00 36, 37 test finding [address] Sensitivity) mg/L [place], [place] [address] [phone] Laboratory 06/29/2008 [facility] [place] TSH 1.12 0.34-5.60 test finding MIU/ML CBC With 06/29/2008 [facility] [place] White Blood 6.6 CUMM 4.8-10.8 Electronic Count Diff Red Cell Count 4.53 CUMM 4.2-5.4 Hemoglobin 14.3 g/dL 12.0-16.0 Hematocrit 43 % 35-47 Mean Corpuscular Volume 94 um3 79-97 Mean Corpuscular Hemoglob 32 pg High 27-31 Mean Corpuscular HGB Cone 34 g/dL 32-36 Redcell Distribution WDTH 12 % 10.5-15 Platelet Count 205 CUMM 150-450 Mean Platelet Volume 8.7 um3 7.4-10.4 Gran % 70.5 % 38-83 Lymph % 18.9 % Low 20-45 Mononuclear % 6.0 % 1-9 Eosinophil % 4.0 % 0-6 Basophil % 0.6 % 0-2 Abs Lymphs 1.2 1.0-4.8 Abs Mononuclear 0.4 0-0.8 Absolute Neutrophil Count 4.7 1.5-7.7 Abs Eosinophils 0.3 0-0.6 Abs Basophils 0 0-0.2 Comp Stat 06/29/2008 [facility] [place]odium 133 mmol/L Low 135-145 Potassium 4.6 mmol/L 3.5-5.0 Chloride 104 mmol/L 101-111 Co2 (Carbon Dioxide) 29.1 mmol/L 22-32 Anion Gap -0.1 mmol/L Low 2-11 38 Glucose 100 mg/dL 70-100 39 BUN 16 mg/dL 6-24 Creatinine 0.92 mg/dL 0.50-1.40 One Over Creatinine 1.00 BUN/Creatinine Ratio 17.4 8-20 Calcium 9.3 mg/dL 8.1-9.9 40 Total Protein 7.3 GM/DL 6.2-8.1 Albumin 3.6 GM/DL 3.2-5.2 Globulin 3.7 GM/DL 2-4 Albumin/Globulin Ratio 1.0 1-3 Bilirubin Total 0.7 mg/dL 0.4-1.5 Alkaline Phosphatase 40 U/L 30-110 Alt (SGPT) 20 U/L 14-54 Ast (Sgot) 24 U/L 12-42 Ua - Micro (Fma) 03/18/2007 [facility] Medicine Appearance CLEAR (607)- - Color YELLOW Glucose NEG Bilirubin NEG Ketones NEG SP Grav 1.010 Blood TRACE-LYSED PH 7.0 Protein SSA 1+ Urobil 0.2 Nitrite NEG Leukocytes (Fma/CMC/[facility]) TRACE Hyaline - /Lpf Granular - /Lpf WBC (Fma,[facility]) 3-5 RBC 4-6 Mucus SM AMNT /Lpf Epith OCC /Lpf Bacteria TRACE /Hpf Amorphous - /Lpf Crystals, Fluid (Fma/CMC/CTX) - Z#Comments - Ua - Micro (a New) 12/13/2004 [facility] Medicine Appearance SL. CLOUDY (607)- - Color LT YELLOW Glucose NEG Bilirubin NEG Ketones NEG SP Grav 1.010 Blood 2+ PH 7.0 Protein SSA 2+ Urobil 0.2 Nitrite NEG Leukocytes 2+ Hyaline - /Lpf Granular - /Lpf WBC'S 20-30 RBC'S TNTC Mucus - /Lpf Epith FEW Bacteria 2+ Amorphous - /Lpf Crystals - /Lpf Comments - Comp Metabolic 01/07/2004 [facility] Glucose, Serum 105 mg/dL 70- 118 (a) (607)- - (Fma/CMC/CTX) BUN (Fma/CMC/[facility]) 20 mg/dL 6-26 Creatinine (Fma/CMC/CTX) 0.9 mg/dL 0.6-1.4 BUN/Creatinin Ratio 21.5 8.0-36 Sodium 140 134-149 Potassium 4.2 3.6-5.5 Chloride 98 mEq/L 94-112 Co2 26 21-32 Calcium (Fma/CMC/[facility]) 9.8 mg/dL 8.6-10.0 Total Protein 8.0 g/dL 6.3-8.1 Albumin (Fma/CMC/[facility]) 4.2 3.8-5.5 Globulin 3.8 2.0-4.8 A/G Ratio (Fma/CMC) 1.1 0.6-2.2 Alkaline Phosphatase (F/C/CTX) 43 U/L 30-110 Alt (SGPT) (Fma/CMC/[facility]) 14 10-40 Ast (Sgot) (Fma/CMC/[facility]) 19 U/mL 5-34 Bilirubin, Total 0.7 mg/dL 0.2-1.3 Lipid Profile 01/07/2004 [facility] Cholesterol 227 mg/dL High 120- 200 ([facility]) (607)- - (Fma/CMC/[facility]) Triglyceride 57 mg/dL 30-200 HDL-Chol 72 30-85 LDL, Calculated ([facility] [place] 143 CALC High 0-129 VLDL 11 0-50 HDL Risk Factor (Fma) 3.1 CALC Low 4.2-7.0 Laboratory test finding 07/30/2003 [facility] Medicine Throat Culture NEGATIVE (607)- - Quickstrep NEGATIVE Negative Lipid Profile ([facility]) 11/17/2002 [facility] Cholesterol 225 mg/dL High 120-200 (607)- - Triglyceride 65 mg/dL 30-200 HDL-Chol 54 30-85 LDL-Calculated ([facility] [place] 158 CALC High 0-129 VLDL 13 0-50 HDL Risk Factor (Fma) 4.2 CALC 4.2-7.0 CBC Electronic ([facility]) 11/17/2002 [facility] WBC 5.2 3.6-9.6 (607)- - Lymphocytes 19.2 % Low 20.5 - 51.1 Monocytes 4.1 % 1.7-9.3 Granulocytes 76.7 % High 42.2 - 75.2 Lymphocytes 1.0 10^3/uL 0.7 - 4.9 Monocytes 0.2 10^3/uL 0.1 - 0.9 Granulocytes 4.0 10^3/uL 1.5 - 7.2 RBC 4.83 3.90-5.70 Hemoglobin (a/CMC/CTX) 15.1 g/dL 12.1 - 17.2 Hematocrit (a/CMC/CTX) 44.3 % 36.1 - 50.3 Mean Corpuscular Vol 91.8 82.2-97.4 Mean Corpuscular Hemaglobin 31.3 27.6-33.3 Mean Corpuscular Hemo Concen 34.1 33.0-34.8 RDW 11.8 11.6-13.7 Platelets 153. 10^3/ul 150-400 Mean Platelet Volume 9.7 7.4-10.4 Comp Metabolic 11/17/2002 [facility] Glucose, Serum 93 mg/dL 70- 118 (Fma) (607)- - (Fma/CMC/CTX) BUN (Fma/CMC/[facility]) 17 mg/dL 7-26 Creatinine (Fma/CMC/CTX) 0.8 mg/dL 0.6-1.4 BUN/Creatinin Ratio 20.8 8.0-36 Sodium 139 134-149 Potassium 4.6 3.6-5.5 Chloride 100 mEq/L 94-112 Co2 27 21-32 Calcium (Fma/CMC/[facility]) 9.4 mg/dL 8.6-10.0 Total Protein 7.9 g/dL 6.3-8.1 Albumin (Fma/CMCC/[facility]) 4.4 3.8-5.5 Globulin 3.5 2.0-4.8 A/G Ratio (Fma/CMC/[facility]) 1.2 0.6-2.2 Alkaline Phosphatase 37 U/L 30-110 Alt (SGPT) 12 10-40 Ast (Sgot) (Fma/CMC/[facility]) 23 U/mL 5-34 Bilirubin, Total 0.7 mg/dL 0.2-1.3 Ua - Micro (a New) 11/14/2002 [facility] Appearance CLEAR/YELLOW (607)- - Glucose NEG Bilirubin NEG Ketones NEG SP Grav <=1.005 Blood MODERATE PH 7.0 Protein SSA TRACE Urobil 0.2 Nitrite NEG Leukocytes NEG Hyaline - /Lpf Granular - /Lpf WBC'S 0-1 RBC'S 30-40 Mucus - /Lpf Epith - Bacteria - Amorphous - /Lpf Crystals - /Lpf Comments - Ua - Micro (a New) 07/10/2002 [facility] Appearance CLEAR LT YELLOW (607)- - Glucose NEGATIVE Bilirubin NEGATIVE Ketones NEGATIVE SP Grav <=1.005 Blood 3+ PH 5.0 Protein NEGATIVE Urobil 0.2 Nitrite NEGATIVE Leukocytes TRACE Hyaline - /Lpf Granular - /Lpf WBC'S 10-15 RBC'S - Mucus - /Lpf Epith FEW Bacteria 1+ Amorphous - /Lpf Crystals - /Lpf Comments - Ua - Micro (a New) 02/28/2002 Family [facility] Appearance CLEAR/LT YELLOW (607)- - Glucose NEG Bilirubin NEG Ketones NEG SP Grav <=1.005 Blood MODERATE PH 6.5 Protein NEG Urobil 0.2 Nitrite NEG Leukocytes SMALL Hyaline - /Lpf Granular - /Lpf WBC'S 8-12 RBC'S 8-12 Mucus - /Lpf Epith OCC RENAL Bacteria 2+ Amorphous - /Lpf Crystals - /Lpf Comments - Comp Metabolic ([facility]) 01/31/2001 [facility] Albumin 4.2 3.8-5.5 (607)- - Alkaline Phosphatase 56 U/L 42-98 Bilirubin, Total 0.5 mg/dL 0.2-1.3 BUN 17 7-26 Calcium 9.4 mg/dL 8.6-10.0 Creatinine 0.7 mg/dL 0.6-1.4 Glucose 96 mg/dL 70 - 118 Ast Sgot 18 U/L 9-44 Alt (SGPT) 16 10-40 Total Protein 7.7 g/dL 6.4-8.3 Sodium 142 134-149 Potassium 5.1 3.6-5.5 Chloride 103 mEq/L 94-112 Co2 27 21-32 Globulin 3.5 2.0-4.8 Albumin / Globulin Ratio 1.2 0.6-2.2 BUN/Creatinin Ratio 24.3 8.0-36 Lipid Profile ([facility]) 01/31/2001 [facility] Cholesterol 201 mg/dL High 140-200 (607)- - Triglyceride 45 mg/dL 30-150 VLDL 9 0-50 LDL-Calculated 129 0-160 HDL-Chol 63 35-85 CBC With Diff ([facility]) 01/31/2001 [facility] WBC 5.7 3.6-9.6 (607)- - Lymphocytes 20.0 % 20.5 - 51.1 Monocytes 2.0 % 1.7 - 9.3 Granulocytes 78.0 % 42.2 - 75.2 Lymphocytes 1.1 10^3/uL 0.7 - 4.9 Monocytes 0.1 10^3/uL 0.1 - 0.9 Granulocytes 4.4 10^3/uL 1.5 - 7.2 RBC 4.55 3.90-5.70 Hemoglobin 13.8 g/dL 12.1 - 17.2 Hematocrit 42.0 % 36.1 - 50.3 Mean Corpuscular Vol 92.3 82.2-97.4 Mean Corpuscular Hemaglobin 30.3 27.6-33.3 Mean Corpuscular Hemo Concen 32.8 33.0-34.8 RDW 11.7 11.6-13.7 Platelets 153 10^3/ul 150-400 Mean Platelet Volume 9.2 7.4-10.4 Ua - Micro (Fma New) 04/07/2000 Family [facility] Appearance CLOUDY/YELLOW (607)- - Glucose NEG Bilirubin NEG Ketones NEG SP Grav <1.005 Blood MODERATE PH 5.5 Protein NEG Urobil 0.2 Nitrite NEG Leukocytes SMALL Hyaline - /Lpf Granular - /Lpf WBC'S 40-50 RBC'S 3-5 Mucus - /Lpf Epith FEW Bacteria 2+ Amorphous - /Lpf Crystals - /Lpf 1 Because ethnic data is not always readily available, this report includes an eGFR for both -Americans and non- Americans. The National Kidney Disease Education Program (NKDEP) does not endorse the use of the MDRD equation for patients that are not between the ages of 18 and 70, are , have extremes of body size, muscle mass, or nutritional status, or are non- or non-. According to the National Kidney Foundation, irrespective of diagnosis, the stage of the disease is based on the level of kidney function: Stage Description GFR(mL/min/1.73 m(2)) 1 Kidney damage with normal or decreased GFR 90 2 Kidney damage with mild decrease in GFR 60-89 3 Moderate decrease in GFR 30-59 4 Severe decrease in GFR 15-29 5 Kidney failure <15 (or dialysis) 2 Please note: The following may produce a false positive D Dimer test: - Rheumatoid factor greater than 60 IU/ml - Plasma hemoglobin greater than 0.05 gm/dl - Bilirubin greater than 50 mg/dl - Lipids greater than 1000 mg/dl - FDP greater than 20 ug/ml 3 >100 to <200 pg/mL: likely compensated congestive heart failure (CHF) 200 to 400 pg/mL: likely moderate CHF >400 pg/mL: likely moderate to severe CHF 4 Because ethnic data is not always readily available, this report includes an eGFR for both -Americans and non- Americans. The National Kidney Disease Education Program (NKDEP) does not endorse the use of the MDRD equation for patients that are not between the ages of 18 and 70, are , have extremes of body size, muscle mass, or nutritional status, or are non- or non-. According to the National Kidney Foundation, irrespective of diagnosis, the stage of the disease is based on the level of kidney function: Stage Description GFR(mL/min/1.73 m(2)) 1 Kidney damage with normal or decreased GFR 90 2 Kidney damage with mild decrease in GFR 60-89 3 Moderate decrease in GFR 30-59 4 Severe decrease in GFR 15-29 5 Kidney failure <15 (or dialysis) 5 Because ethnic data is not always readily available, this report includes an eGFR for both -Americans and non- Americans. The National Kidney Disease Education Program (NKDEP) does not endorse the use of the MDRD equation for patients that are not between the ages of 18 and 70, are , have extremes of body size, muscle mass, or nutritional status, or are non- or non-. According to the National Kidney Foundation, irrespective of diagnosis, the stage of the disease is based on the level of kidney function: Stage Description GFR(mL/min/1.73 m(2)) 1 Kidney damage with normal or decreased GFR 90 2 Kidney damage with mild decrease in GFR 60-89 3 Moderate decrease in GFR 30-59 4 Severe decrease in GFR 15-29 5 Kidney failure <15 (or dialysis) 6 REFERENCE VALUE 0.3300-1.94 7 REFERENCE VALUE 0.5700-2.63 8 REFERENCE VALUE 0.2600-1.65 Test Performed by: [facility] - [address] [address] 9 M-spike in gamma fraction. Size of monoclonal protein not changed significantly since 04/14/2017. Test Performed by: [address] [id number] 10 The SPE pattern demonstrates a single peak (M-spike) in the gamma region which may represent monoclonal protein. This peak may also be caused by circulating immune complexes, cryoglobulins, C-reactive protein, fibrinogen or hemolysis. If clinically indicated, the presence of a monoclonal gammopathy may be confirmed by immuno- fixation, as well as an evaluation of the urine for the presence of Bence-Granados protein. 11 Protein electrophoresis scan will follow via computer, mail, or groundskeeping maintenance delivery. 12 Because ethnic data is not always readily available, this report includes an eGFR for both -Americans and non- Americans. The National Kidney Disease Education Program (NKDEP) does not endorse the use of the MDRD equation for patients that are not between the ages of 18 and 70, are , have extremes of body size, muscle mass, or nutritional status, or are non- or non-. According to the National Kidney Foundation, irrespective of diagnosis, the stage of the disease is based on the level of kidney function: Stage Description GFR(mL/min/1.73 m(2)) 1 Kidney damage with normal or decreased GFR 90 2 Kidney damage with mild decrease in GFR 60-89 3 Moderate decrease in GFR 30-59 4 Severe decrease in GFR 15-29 5 Kidney failure <15 (or dialysis) 13 M-spike in gamma fraction. Size of monoclonal protein not changed significantly since 12/14/2014. Test Performed by: [place] [id number] [employer] Operator: Richy Martin II, M.D., Ph.D. 14 Because ethnic data is not always readily available, this report includes an eGFR for both -Americans and non- Americans. The National Kidney Disease Education Program (NKDEP) does not endorse the use of the MDRD equation for patients that are not between the ages of 18 and 70, are , have extremes of body size, muscle mass, or nutritional status, or are non- or non-. According to the National Kidney Foundation, irrespective of diagnosis, the stage of the disease is based on the level of kidney function: Stage Description GFR(mL/min/1.73 m(2)) 1 Kidney damage with normal or decreased GFR 90 2 Kidney damage with mild decrease in GFR 60-89 3 Moderate decrease in GFR 30-59 4 Severe decrease in GFR 15-29 5 Kidney failure <15 (or dialysis) 15 1 sst -- refrigerated 16 Immunofixation electrophoresis identifies an IgG Lambda. 17 FASTING 18 1SST 19 An M-spike is present restricting to the gammaglobulin region. Immunofixation electrophoresis is recommended. 20 RUN DATE: 05/08/13 [facility] LAB LIVE PAGE 1 RUN TIME: [address] [place] [id number] Specimen Inquiry Name: LESLIE SMITH : [address]: Wang De La Vega MD Acct: [id number] Unit: [id number] AGE: 77 Location: ENDOEAST Re05/04/13 SEX: F Status: REG REF SPEC: [id number] TALON: 05/04/13- SUBM DR: Wang De La Vega MD REQ: [id number] RECD: 05/04/13 STATUS: JULIUS NORTON DR: David Shoemaker MD _ ORDERED: LEVEL IV FINAL DIAGNOSIS Colon, rectum, biopsy: A. Large intestinal mucosa with hyperplastic change and associated superficial ulceration with acute inflammatory exudate. B. Correlation with clinical and colonoscopic findings is suggested. CLINICAL HISTORY Screening colonoscopy with history of polyps POST-OPERATIVE DIAGNOSIS Screening flexible sigmoidoscopy to 20 cm. - probable internal hemorrhoid, no evidence of rectal polyp, biopsied GROSS DESCRIPTION The specimen is received in formalin labeled Leslie Smith, Biopsies Rectal Nodule, and consists of two hidalgo, soft tissue fragments measuring 0.5 x 0.2 x 0.1 cm. Submitted entirely, one cassette. Signed (signature on file) Adan Mcginnis MD [id number] END OF REPORT * ML=Testing performed at Main Lab DEPARTMENT OF PATHOLOGY, [facility] [place] Original [place] [address] Adan Mcginnis M.D. Director [facility] Permit #[id number] RUN DATE: 02/13/13 [facility] LAB LIVE PAGE 1 RUN TIME: 8486 [facility] [place] [address] Specimen Inquiry Name: LESLIE SMITH : [address]: Wang De La Vega MD Acct: [id number] Unit: [id number] AGE: 77 Location: [facility] Re02/09/13 SEX: F Status: REG REF SPEC: [id number] TALON: 02/09/13- SUBM DR: Wang De La Vega MD REQ: [id number] RECD: 02/09/135 STATUS: JULIUS NORTON DR: David Shoemaker MD _ ORDERED: LEVEL IV/2 FINAL DIAGNOSIS 1) Colon, rectum, biopsy: A. Tubular adenoma. B. No high grade dysplasia or malignancy. 2) Colon, at 20 cm., biopsy: A. Tubular adenoma. B. No high grade dysplasia or malignancy. CLINICAL HISTORY Screening colonoscopy POST-OPERATIVE DIAGNOSIS Screening colonoscopy into cecum. Prep good. Small sigmoid polyp removed. Nodules at ano-rectal junction biopsied. GROSS DESCRIPTION 1) The specimen is received in formalin labeled Leslie Y. Sally, Rectal Nodule and consists of three portions of hidalgo-white tissue that measure 0.4 x 0.2 x 0.2 cm., 0.3 x 0.2 x 0.2 cm., and 0.2 x 0.1 by less than 0.1 cm. Submitted entirely, one cassette. 2) The specimen is received in formalin labeled Leslie Jarred CallesSally, Colon Polyp at 20 cm. and consists of one, hidalgo-white portion of tissue that measures 0.2 x 0.2 x 0.1 cm. Submitted entirely, one cassette. Signed (signature on file) Danielle Gardner MD 11/21 1528 END OF REPORT * ML=Testing performed at Main Lab DEPARTMENT OF PATHOLOGY, [address] [place] [address] Adan Mcginnis M.D. Director [facility] Permit #[id number] 22 result rosibel'd 23 RESULT ROSIBEL'D 24 RESULT ROSIBEL'D 25 Recent studies consider the lower limit of 32.0 ng/mL to be a threshold for optimal health. Bryan BW. J Nutr. 2004;135(2):317-22. 26 NO EPI, RARE WBC, RARE GRAM POS COCCI, 27 FUNGUS CULTURE organism 1 Cherrie albicans 28 Normal respiratory tg. 29 NO EPI, RARE WBC, RARE GRAM POS COCCI, 30 FEW FUNGAL ELEMENTS NOTED [yeast noted] 31 Lymphopenia % 32 Anion gap measurement may be of limited value in the presence of any alkalosis, especially in a combined acid base disorder. . 33 Note change in reference range as of 03/01/08. The change was based on recommendations from the [place] [employer]. 34 Please note change in reference range effective 07 . 35 -- REFERENCE VALUE -- Mean +1 SD +2 SD 13.2 41.0 127.0 Test Performed by: [facility] Pathology [address] [place] [address] Stem Roller Or Crusher Operator: Aime Romo III, M.D. 36 POUR OFF SERUM 37 . hs-CRP Result (mg/L) Risk Level <1.0 Low 1.0-3.0 Average >3.0 High Patients with persistently unexplained, marked elevation of hs-CRP (greater than 10 mg/L) after repeated testing should be evaluated for non-cardiovascular etiologies. . 38 Anion gap measurement may be of limited value in the presence of any alkalosis, especially in a combined acid base disorder. . 39 Note change in reference range as of 03/01/08. The change was based on recommendations from the [place] [employer]. 40 Please note change in reference range effective 07 . Procedures Date Code Description Status 01/25/2019 [id number] Mammogram Completed 07/26/2018 41825 Remove Impact Cerumen Irrigati Completed 07/23/2017 [id number] Mammogram Completed 2016 [id number] Mammogram Completed 07/19/2015 [id number] Mammogram Completed 07/10/2015 55133 Electrocardiogram Complete Completed 01/26/2014 78722 Remove Foreign Body Ext Auditory Canal, W/O Gen Completed Anesthesia 02/09/2013 [id number] Colonoscopy Completed 07/15/2012 14985 Remove Foreign Body Ext Auditory Canal, W/O Gen Completed Anesthesia 07/15/2012 96840 Remove Impacted Cerumen Completed 04/20/2012 [id number] Mammogram Completed 05/20/2010 [id number] Mammogram Completed 05/09/2010 39963 Electrocardiogram Complete Completed 08/14/2008 [id number] Mammogram Completed 08/03/2008 18688 Electrocardiogram Complete Completed 08/08/2007 [id number] Mammogram Completed 11/22/2006 00779 Repair Superfic Wound 2.6-7.5CM Completed Scalp/Neck/Axil/Genit/Trunk/Extr 11/14/2002 89498 Electrocardiogram Complete Completed Encounters Type Date Location Provider Dx Diagnosis Office Visit 07/26/2018 [facility] Sita Acuna J01.90 Acute sinusitis , 2:00p POONAM Sanchez unspecified H61.21 Impacted cerumen, right ear Office Visit 03/29/2018 11:10a [facility] David Sanders R06.02 Shortness favio Shoemaker M.D. breath R42 Dizziness and giddiness R26.81 Unsteadiness on feet Office Visit 07/20/2017 2:30p [facility] Sita Acuna R05 Cough Daniel, POONAM Office Visit 05/07/2017 3:20p [facility] David Sanders Z00.00 Encntr evert Shoemaker M.D. general adult medical exam w/o abnormal findings E78.5 Hyperlipidemia, unspecified R20.0 Anesthesia of skin M25.561 Pain in right knee M25.541 Pain in joints of right hand Office Visit 07/10/2015 10:20a [facility] Office Meagan Swanson00.00 Encntr evert Rizvi general adult medical exam w/o abnormal findings E78.5 Hyperlipidemia, unspecified Z23 Encounter for immunization Office Visit 01/26/2014 10:00a [facility] Office David Sanders 931 Foreign Body Belkys Shoemaker Ear Office Visit 01/16/2014 9:40a [facility] David Sanders 366.9 Cataract Unspec Belkys Shoemaker 782.0 Skin Sensation Disturbance V72.83 Examination Preoperative Other Spec Office Visit 11/30/2013 9:30a [facility] Debbie Ontiveros, 906.1 Wound, Open Extrem KETTLEMAN W/O Tendon Injury, Late Effect E920.3 Accident Caused By Knives Swords & Daggers Office Visit 11/23/2013 3:15p [facility] Debbie Ontiveros, 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 Respiratory Infections Acute Unspec Sites Office Visit 06/23/2011 1:10p [facility] David Sanders 466.0 Bronchitis Acute Belkys Shoemaker Office Visit 01/09/2011 11:10a Main Office David Sanders 599.72 Microscopic Belkys Shoemaker Hematuria Office Visit 09/23/2010 4:20p [facility] David Sanders 466.0 Bronchitis Acute Belkys Shoemaker Office Visit 05/09/2010 10:20a [facility] Office David Sanders 780.4 Dizziness & Belkys Shoemaker Giddiness 786.2 Cough 786.50 Pain Chest Unspec 599.72 Microscopic Hematuria Office Visit 02/25/2010 2:00p [facility] David Sanders 465.9 URI Suzi Shoemaker M.D. 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 786.2 Cough 466.0 Bronchitis Acute Office Visit 08/03/2008 8:25a Main Office David Shoemaker M.D. 786.2 Cough 807.02 FX Ribs Closed Two 716.90 Arthropathy Unspec Site Unspec 272.4 Hyperlipidemia Other Unspec Office Visit 07/10/2008 2:00p Main Office David Shoemaker M.D. 786.2 Cough 807.02 FX Ribs Closed Two Office Visit 06/01/2008 1:10p Main Office David Shoemaker, 786.2 Cough M.D. Office Visit 03/18/2007 11:00a Main Office David Shoemaker, 553.9 Hernia Unspec M.DBoaz Site 788.1 Dysuria Office Visit 11/26/2006 [facility] Office David Sanders 891.0 Open Wound Knee Leg 1:00p Belkys Shoemaker (Except Thigh) & Ankle W/O Complication Office Visit 08/02/2006 [facility] Office David Sanders 466.0 Bronchitis Acute 3:00p Belkys Shoemaker Office Visit 01/25/2006 Main Office Elissa Odonnell, 466.0 Bronchitis Acute 8:30p REPORT SPECIALIST Office Visit 03/10/2005 [facility] David Sanders 473.9 Sinusitis Chronic 2:00p Office Belkys Shoemaker Unspec Office Visit 12/13/2004 Main Office Elissa Odonnell, 599.0 UTI Urinary Tract 10:00a REPORT SPECIALIST Infection Site Not Spec Office Visit 12/24/2003 Main Office David Sanders 724.5 Backache Unspec 8:40a Belkys Shoemaker Office Visit 11/27/2003 Morales Sanders 729.5 Pain In Limb 4:00p Office Belkys Shoemaker Office Visit 07/30/2003 Main Office James Guillen Nasopharyngitis Acute 1:40p Belkys Hsu Office Visit 11/14/2002 [facility] David Sanders 716.90 Arthropathy Unspec 10:20a Office Belkys Shoemaker Site Unspec 733.00 Osteoporosis Unspec 780.79 Malaise And Fatigue Other V17.4 History Family Chronic Cardiovascular Diseases Office Visit 07/10/2002 6:00p Main Office Elissa Odonnell, 599.0 UTI Urinary REPORT SPECIALIST Tract Infection Site Not Spec Office Visit 04/06/2000 2:10p [facility] David Shoemaker M.D. Plan of Treatment 02/06/2019 - Sita Sanchez, NPM25.562 Pain in left kneeNew Xrays:Knee Complete 4 Or More Views Bi, Scheduled: 02/06/19Comments: RestIceCompressionElevation NSAIDs PRN pain return if worsening or failure to wxthkisQ88.561 Pain in right kneeR60.0 Localized edemaComments:Supportive Care: - Elevate legs- Increase protein in diet and try to drink at least 1-2 more glasses of water per day - Take frequent breaks while on your feet - Compression stockings ED Precautions [id number] DysuriaComments:drink plenty of fluids, call if symptoms don't improve, you develop fever >100.4, vomiting or symptoms worsen Patient verbalized understanding.M25.552 Pain in left hipNew Xrays:Hip Complete Min 2 Views LT, Scheduled: 02/06/19AllComments: Medication Management Patient Understands medications he 's taking? Yes No Are there Barriers to Adherence? Yes No Has the patient been asked about herbal supplements and therapies, andOTC meds? Yes No Care Plan1. Patient has been queried about patient's goals/preferences and functional/lifestyle goals at relevant visits. If relevant, describe: na2. Treatment goals as explained to the patient: above3. Are there barriers to meeting treatment goals? Yes No If Yes, please describe:4. Self- Management goals as described to the patient: Yes NoAs always, we strongly encourage a healthy diet and making physical activity a part of your every day life. If you have questions about how or where to start, please contact the office.
--- NOTE | 2019-02-22 18:09 | UC ---
Skin Complaint HPI - HPI Summary HPI Summary: Patient is an 83-year-old female here with a left facial rash. Patient's had 2 days of rash to her left cheek. The rash started at her ear where she thinks she was bit by a bug. Patient's rash is itchy and has spread to her left cheek and neck. Patient has no fever, chills, difficulty swallowing, change in voice. Patient went to an urticarial rash and was diagnosed with shingles and started on Valtrex. Patient's had no cough or recent weight loss. Medications Reviewed - History of Current Complaint Chief Complaint: UCSkin Time Seen by Provider: 02/22/19 17:56 Stated Complaint: FACIAL SKIN IRRITATION Hx Obtained From: Patient Onset/Duration: Gradual Onset Pain Intensity: 5 - Allergy/Home Medications Allergies/Adverse Reactions: Allergies Allergy/AdvReac Type Severity Reaction Status Date / Time clams Allergy Nausea Verified 02/22/19 17:52 nitrofurantoin Allergy Itching Verified 02/22/19 17:52 [From Macrobid] scallops Allergy Nausea Verified 02/22/19 17:52 Sulfa (Sulfonamide Allergy Hives Verified 02/22/19 17:52 Antibiotics) Home Medications: Home Medications Loratadine 10 mg PO DAILY 02/22/19 [History Confirmed 02/22/19] ValACYclovir (*) [Valtrex 1 GM(*)] 1 gm PO TID 02/22/19 [History Confirmed 02/22] Vit A/Vit C/Vit E/Zinc/Copper [Preservision Areds Softgel] 1 each PO 02/22/19 [ History] diPHENhydraMINE PO* [Benadryl PO 25 MG TAB*] 25 mg PO PRN 02/22/19 [History] PMH/Surg Hx/FS Hx/Imm Hx Previously Healthy: Yes - Surgical History Surgical History: Yes Surgery Procedure, Year, and Place: one wisdom tooth, tonsillectomy - Family History Known Family History: Positive: Non-Contributory - Social History Alcohol Use: Occasionally Alcohol Amount: 1 GLASS OF WINE PER DAY Substance Use Type: None Smoking Status (MU): Never Smoked Tobacco Review of Systems All Other Systems Reviewed And Are Negative: Yes Constitutional: Negative: Fever, Chills Skin: Positive: Rash Eyes: Negative: Blurred Vision, Diplopia, Drainage ENT: Negative: Dental Pain, Sore Throat, Ear Ache, Nasal Discharge Respiratory: Negative: Shortness Of Breath, Cough Cardiovascular: Negative: Chest Pain Physical Exam Vital Signs: Initial Vital Signs Temp 99 F 02/22/19 17:45 Pulse 77 02/22/19 17:45 Resp 16 02/22/19 17:45 BP 143/77 02/22/19 17:45 Pulse Ox 99 02/22/19 17:45 Course/Dx - Course Course Of Treatment: Patient is here with a rash to the left side of her face. Patient was initially being treated for shingles but this does not appear to be a shingles rash. Patient's rash is itchy which goes against cellulitis but it is warm and erythematous. Given the appearance of it, patient will be treated with Keflex for cellulitis. Patient has no evidence of deep space infection. Patient has no risk factors or symptoms of a mediastinal mass outside of the unilateral facial erythema. Patient is likely suffering from a local reaction to a bug bite and was encouraged to continue Benadryl as needed. - Differential Diagnoses - Skin Complaint Differential Diagnoses: Abscess, Impetigo, MRSA, Poison [place], Other - Bug bite, mediastinal mass - Diagnoses Provider Diagnosis: Cellulitis, face Discharge - Sign-Out/Discharge Documenting (check all that apply): Patient Departure All imaging exams completed and their final reports reviewed: No Studies - Discharge Plan Condition: Stable Disposition: HOME Prescriptions: Cephalexin CAP* [Keflex CAP*] 500 mg PO QID 7 Days #28 cap Patient Education Materials: Cellulitis (ED) Referrals: David Shoemaker MD [Primary Care Provider] - Additional Instructions: Please start your antibiotic Please take Benadryl as needed for itching Please stop your Valtrex Please go to the emergency department if you have swelling in her throat, difficulty swallowing, change in her voice, fever, worsening swelling - Billing Disposition and Condition Condition: STABLE Disposition: Home
== END 2019-02-22 18:30 | disposition home or self-care (01) ==
LOC: UCEAST 17:37
DX: L03.211 Cellulitis of face (principal); Z88.2 Allergy status to sulfonamides
CPT/HCPCS: 99212; G0463

== ENCOUNTER 2019-02-23 15:53 | Emergency (ER) | payer MEDICARE ==
[2019-02-23 16:58] LABS: ABS Basophils 0.1 10^3/ul (0-0.2); ABS Eosinophils 0.5 10^3/ul (0-0.6); ABS Lymphocytes 0.9 10^3/ul (1.0-4.8); ABS Monocytes 0.5 10^3/ul (0-0.8); ABS Neutrophils 7.6 10^3/ul (1.5-7.7); Eosinophil % 4.7 %; Hematocrit 38 % (35-47); Hemoglobin 12.7 g/dL (12.0-16.0); Lymphocyte % 9.8 %; Mean Corpuscular HGB Conc 34 g/dL (31-36); Mean Corpuscular Hemoglobin 30 pg (27-31); Mean Corpuscular Volume 90 fL (80-97); Mean Platelet Volume 9.5 fL (7.4-10.4); Platelet Count 234 10^3/uL (150-450); Red Blood Count 4.17 10^6 /uL (3.70-4.87); Red Cell Distribution Width 13 % (10-15); White Blood Count 9.6 10^3/uL (3.5-10.8)
[2019-02-23 17:10] LABS: Albumin 4.3 g/dL (3.2-5.2); Albumin/Globulin Ratio 1.3 (1-3); C Reactive Protein 2.01 mg/L (<8.01); Calcium 10.2 mg/dL (8.6-10.3); EGFR African American 50.6 (>60); EGFR Non-African American 41.8 (>60); Globulin 3.3 g/dL (2-4); Potassium 4.3 mmol/L (3.5-5.0); Total Bilirubin 0.5 mg/dL (0.2-1.0); Total Protein 7.6 g/dL (6.4-8.9)
--- NOTE | 2019-02-23 19:51 | ED ---
Skin Complaint - HPI Summary HPI Summary: An 83 y/o female presents to [facility] with a chief complaint of cellulitis on the left side of her face. She noticed redness on the left side of her face and was diagnosed with shingles three days ago at [facility]. Now some of her redness has expanded down to her neck. Yesterday she went to urgent care and was told that she had cellulitis. She has been taking Keflex since yesterday. Her redness has been spreading down her face to her neck. She saw Dr. Hsu today who was concerned that the redness was spreading to her neck. She had a CT done and reports that it showed no abscess. He reportedly said that oral abx are not enough. She denies fevers, SOB or trouble swallowing. She reports a Hx of bronchiectasis, chronic RLE>LLE edema and a FHx of cardiac disease. - History of Current Complaint Chief Complaint: EDFacialInjury Time Seen by Provider: 02/23/19 18:46 Stated Complaint: CELLULITIS PER DR HSU PER PT Hx Obtained From: Patient, Family/Heat And Frost Insulator Onset/Duration: Started Days Ago, Still Present Skin Exposure Onset/Duration: Days Ago Timing: Constant, Lasting Days Onset Severity: Mild Current Severity: Mild Pain Intensity: 0 Pain Scale Used: 0-10 Numeric Skin Location: Face Character: Swelling, Redness Aggravating Symptom(s): Nothing Alleviating Symptom(s): Nothing Associated Signs & Symptoms: Negative - fever, SOB difficulty swallowing - Allergy/Home Medications Allergies/Adverse Reactions: Allergies Allergy/AdvReac Type Severity Reaction Status Date / Time clams Allergy Nausea Verified 02/22/19 17:52 nitrofurantoin Allergy Itching Verified 02/22/19 17:52 [From Macrobid] scallops Allergy Nausea Verified 02/22/19 17:52 Sulfa (Sulfonamide Allergy Hives Verified 02/22/19 17:52 Antibiotics) PMH/Surg Hx/FS Hx/Imm Hx Endocrine/Hematology History: Denies: Hx Diabetes Cardiovascular History: Denies: Hx Hypertension, Hx Pacemaker/ICD Respiratory History: Reports: Other Respiratory Problems/Disorders - BRONCHIECTASIS History: Denies: Hx Renal Disease Musculoskeletal History: Reports: Hx Arthritis - ARTHRITIS LEFT HIP Sensory History: Reports: Hx Cataracts - BILATERAL, Hx Contacts or Glasses - GLASSES, Hx Hearing Aid - BILATERAL Opthamlomology History: Reports: Hx Cataracts - BILATERAL, Hx Contacts or Glasses - GLASSES Psychiatric History: Denies: Hx Panic Disorder - Cancer History Hx Chemotherapy: No Hx Radiation Therapy: No - Surgical History Surgery Procedure, Year, and Place: one wisdom tooth, tonsillectomy Hx Anesthesia Reactions: No Infectious Disease History: No Infectious Disease History: Reports: Hx Shingles Denies: History Other Infectious Disease, Traveled Outside the [place] in Last 30 Days - Family History Known Family History: Positive: Non-Contributory - Social History Alcohol Use: Occasionally Alcohol Amount: 1 GLASS OF WINE PER DAY Substance Use Type: Reports: None Hx Tobacco Use: No Smoking Status (MU): Never Smoked Tobacco Review of Systems Negative: Fever Positive: Other - negative: difficulty swallowing Negative: Shortness Of Breath Positive: Other - positive: swollen feet Positive: Other - positive: redness and swelling to left side of face Positive: Numbness - feet All Other Systems Reviewed And Are Negative: Yes Physical Exam - Summary Physical Exam Summary: Constitutional: Well-developed, Well-nourished, Alert. (-) Distressed Skin: Warm, Dry, erythema of left cheek down to the chin and neck sparing the eye and mouth, HENT: Normocephalic; Atraumatic Eyes: Conjunctiva normal Neck: Musculoskeletal ROM normal neck. (-) JVD, (-) Stridor, (-) Nuchal rigidity Cardio: Rhythm regular, rate normal, Heart sounds normal; Intact distal pulses; Radial pulses are 2+ and symmetric. (-) Murmur Pulmonary/Chest wall: Effort normal. (-) Respiratory distress, (-) Wheezes, (-) Rales Abd: Soft, (-) tenderness, (-) Distension, (-) Guarding, (-) Rebound Musculoskeletal: left greater than right lower extremity edema (chronic) Lymph: (-) Cervical adenopathy Neuro: Alert, Oriented x3 Psych: Mood and affect Normal Triage Information Reviewed: Yes Vital Signs On Initial Exam: Initial Vitals Temp Pulse Resp BP Pulse Ox 97.9 F 74 18 183/112 96 02/23/19 16:01 02/23/19 16:01 02/23/19 16:01 02/23/19 16:01 02/23/19 16:01 Vital Signs Reviewed: Yes Diagnostics - Vital Signs Vital Signs Temp Pulse Resp BP Pulse Ox 02/23/19 17:47 98.6 F 73 18 168/93 99 02/23/19 16:01 97.9 F 74 18 183/112 96 - Laboratory Lab Results: Lab Results 02/23/19 02/23/19 02/23/19 Range/Units 16:40 16:40 16:40 WBC 9.6 (3.5-10.8) 10^3/uL RBC 4.17 (3.70-4.87) 10^6 /uL Hgb 12.7 (12.0-16.0) g/dL Hct 38 (35-47) % MCV 90 (80-97) fL MCH 30 (27-31) pg MCHC 34 (31-36) g/dL RDW 13 (10-15) % Plt Count 234 (150-450) 10^3/uL MPV 9.5 (7.4-10.4) fL Neut % (Auto) 79.6 % Lymph % (Auto) 9.8 % [place] % (Auto) 5.1 % Eos % (Auto) 4.7 % Baso % (Auto) 0.8 % Absolute Neuts (auto) 7.6 (1.5-7.7) 10^3/ul Absolute Lymphs (auto) 0.9 L (1.0-4.8) 10^3/ul Absolute Monos (auto) 0.5 (0-0.8) 10^3/ul Absolute Eos (auto) 0.5 (0-0.6) 10^3/ul Absolute Basos (auto) 0.1 (0-0.2) 10^3/ul Absolute Nucleated RBC 0.0 10^3/ul Nucleated RBC % 0.0 Sodium 134 L (135-145) mmol/L Potassium 4.3 (3.5-5.0) mmol/L Chloride 100 L (101-111) mmol/L Carbon Dioxide 26 (22-32) mmol/L Anion Gap 8 (2-11) mmol/L BUN 32 H (6-24) mg/dL Creatinine 1.23 H (0.51-0.95) mg/dL Est GFR ( Amer) 50.6 (>60) Est GFR (Non-Af Amer) 41.8 (>60) BUN/Creatinine Ratio 26.0 H (8-20) Glucose 106 H (70-100) mg/dL Lactic Acid 0.6 (0.5-2.0) mmol/L Calcium 10.2 (8.6-10.3) mg/dL Total Bilirubin 0.50 (0.2-1.0) mg/dL AST 22 (13-39) U/L ALT 13 (7-52) U/L Alkaline Phosphatase 50 (34-104) U/L C-Reactive Protein 2.01 (<8.01) mg/L Total Protein 7.6 (6.4-8.9) g/dL Albumin 4.3 (3.2-5.2) g/dL Globulin 3.3 (2-4) g/dL Albumin/Globulin Ratio 1.3 (1-3) Result Diagrams: 02/23/19 16:40 02/23/19 16:40 Lab Statement: Any lab studies that have been ordered have been reviewed, and results considered in the medical decision making process. Re-Evaluation - Re-Evaluation First Eval Re-Evaluation Time: 20:07 Change: Unchanged Comment: Pt will get one dose of Clindamycin and then get discharged home. Course/Dx - Course Course Of Treatment: 9-year-old female with left facial erythema for several days. Physical exam consistent with erysipelas. No systemic signs of infection , no white count, no fevers, patient is well-appearing. Explained that her redness may increase on the first or second day of her antibiotic. We'll give 1 dose of IV clindamycin here and switched to clindamycin PO for tomorrow. Patient to return for worsening symptoms including fevers, swelling, trouble breathing or difficulty swallowing - Diagnoses Provider Diagnoses: Erysipelas Discharge - Sign-Out/Discharge Documenting (check all that apply): Patient Departure - admit Patient Received Moderate/Deep Sedation with Procedure: No - Discharge Plan Condition: Fair Disposition: ADMITTED TO [facility] Prescriptions: Clindamycin Cap(NF) [Clindamycin Cap 300 mg Cap(NF)] 300 mg PO Q6H 7 Days #28 cap Patient Education Materials: Cellulitis (ED) Referrals: David Shoemaker MD [Primary Care Provider] - Additional Instructions: Seen in the emergency department for cellulitis. The redness may increase on the first or second day of antibiotics. Please take clindamycin for 7 days and stop keflex. Please follow up with her primary care doctor in 2-3 days, return for worsening symptoms, trouble breathing, trouble swallowing, fevers or if you are concerned. - Billing Disposition and Condition Condition: FAIR Disposition: Admitted to [facility] - Attestation Statements Document Initiated by Flores: Yes Documenting Scribe: Carl Lam Provider For Whom Flores is Documenting (Include Credential): Dylan Karimi MD Scribe Attestation: ICarl, scribed for Dylan Karimi MD on 02/23/19 at 2204. Scribe Documentation Reviewed: Yes Provider Attestation: The documentation as recorded by the Carl mendez accurately reflects the service I personally performed and the decisions made by , Dylan Karimi MD Status of Scribe Document: Viewed
[2019-02-23] MEDS ORDERED: Clindamycin 600 MG IVPREMIX(* 600 MG/50 ML SDV IV ONE (20:04)
[2019-02-23 21:23] VITALS: BP 162/98
== END 2019-02-23 21:21 | disposition short-term general hospital (02) ==
LOC: ED 15:53
DX: A46 Erysipelas (principal); Z88.1 Allergy status to other antibiotic agents; Z88.2 Allergy status to sulfonamides
CPT/HCPCS: 36415; 80053; 83605; 85025; 86140; 87040; 96365; 99283